=== PATIENT | male | born 2000 | race Caucasian/White ===

== ENCOUNTER 2023-04-17 02:57 | Emergency (ER) | payer OTHER ==
[2023-04-17 06:47] VITALS: BP 110/76
== END 2023-04-17 06:49 | disposition home or self-care (01) ==
LOC: ED 02:57
DX: T40.411A Poisoning by fentanyl or fentanyl analogs, accidental (unintentional), initial encounter (principal); R40.4 Transient alteration of awareness
CPT/HCPCS: 99284; J2310; J3490

== ENCOUNTER 2023-09-29 10:30 | Emergency (ER) | payer OTHER ==
[~2023-09-29] VITALS: Ht 172.7 cm; Wt 62.1 kg
[2023-09-29] MEDS ORDERED: FLUORESCEIN SOD 1 EA STRP OD ONE (12:00)
[2023-09-29] MEDS ORDERED: TETRACAINE HCL 0.5% 4 ML BTL OD ONE (12:00)
[2023-09-29 12:25] VITALS: BP 107/67
== END 2023-09-29 12:25 | disposition home or self-care (01) ==
LOC: ED 10:30
DX: H10.11 Acute atopic conjunctivitis, right eye (principal)
CPT/HCPCS: 99283